=== PATIENT | male | born 1975 | race Caucasian/White ===

== ENCOUNTER 2022-08-24 21:38 | Emergency (ER) | payer OTHER, SELFPAY ==
[2022-08-24 21:43] VITALS: BP 103/77; PULSE 113; RESP 15; TEMP 37.2; O2SAT 99; BMI 28.7
[2022-08-24 21:44] VITALS: BP 103/77; PULSE 115; RESP 18; TEMP 37.2; O2SAT 98
[2022-08-24 22:03] LABS: Bacteria 0 SEEN /hpf (None Seen); Red Blood Cells-Urine 0 SEEN /hpf (0-5)
[2022-08-24 22:11] LABS: Color, Urine Yellow (Yellow); Glucose, Dipstick Normal (Normal); Ketone-Dipstick Negative (Negative); Leukocyte Esterase-Dipstick 25 /ul (Negative); Nitrite-Dipstick Negative (Negative); Occult Blood-Urine Negative /ul (Negative); Protein-Dipstick 15 mg/dl (Negative); Urine Clarity Clear (Clear); Urine Urobilinogen 1 mg/dl (Normal)
--- NOTE | 2022-08-24 22:11 | EDS_ITS ---
HPI HPI - GI History of Present Illness Chief Complaint: Nausea/Vomiting/Diarrhea Informant: patient Nausea/Vomiting/Emesis GI Symptom: Positive for Nausea and Vomiting Diarrhea/Melena/Hematochezia GI Symptom: Positive for Diarrhea; Negative for Melena or Hematochezia Onset: Today Stool Quality: Positive for Watery Severity: Mild Associated Symptoms Associated Symptoms: Negative for Dysuria, Frequency, Hematuria or Urgency Narrative Narrative: 47-year-old male past medical history of depression and restless leg syndrome. No significant prior abdominal surgeries. Said his daughter had it frozen today he developed nausea, vomiting and diarrhea. Body aches. Denies any dysuria. No localizing abdominal pain. He is thrown up 4-6 times and had multiple bouts of diarrhea. No melena or hematochezia. Prior similar symptoms: Yes Recent Illness/Hospitalization: No PFSH PFSH Home Medications citalopram 10 mg tablet (Celexa) 10 mg 1XD 08/24/22 [History Last Taken Unknown] gabapentin 300 mg tablet 300 mg PO TID 08/24/22 [History Last Taken Unknown] ondansetron 4 mg disintegrating tablet 4 mg PO Q6H PRN nausea and vomiting #7 tabs 08/24/22 [Rx Last Taken Unknown] Allergy/AdvReac Type Severity Reaction Status Date / Time No Known Allergies Allergy Verified 08/24/22 21:45 Social History Smoking Status: Never smoker ROS ROS ED ROS Narrative Nausea, vomiting and diarrhea. Body aches. Review of Systems ROS Unobtainable: Denies due to encephalopathy Constitutional Constitutional ED: Denies chills or fever(s) ENT ENT ED: Denies ear pain Cardiovascular Cardiovascular: Denies chest pain Respiratory/Chest Respiratory/Chest: Denies cough or dyspnea Gastrointestinal Gastrointestinal: Reports abdominal pain, diarrhea, nausea and vomiting; Denies constipation or melena Genitourinary Genitourinary ED: Denies dysuria or hematuria Musculoskeletal Musculoskeletal: Reports arthralgias and myalgias Integumentary Denies abscess Neurologic Neurologic: Denies headache(s) Psychiatric Psychiatric: Denies anxiety Endocrine Endocrinology: Denies polydipsia Hematologic/Lymphatic Hematologic/Lymphatic: Denies easy bleeding Allergic/Immunologic Allergic/Immunologic ED: Denies mouth swelling or tongue swelling EXAM Physical Exam Narrative Exam Narrative: 47-year-old male no acute distress. Vital signs are stable and afebrile. Does not look septic or toxic. Mildly dehydrated. H EENT exam mildly dry mucous membranes otherwise unremarkable. Neck nontender no lymphadenopathy. Lungs clear to auscultation bilaterally. Heart tachycardic rate about 115. No murmur. Abdomen soft, nontender, nondistended, normal bowel sounds. No right upper or right lower quadrant tenderness. No distention. No hernia. Positive bowel sounds. Moving all 4 extremities. Neurologically is awake and alert with no focal motor deficits. Const Vital Signs: 08/24/22 21:43 08/24/22 21:44 Temperature 98.9 F 98.9 F Temperature Source Temporal Temporal Pulse Rate 113 H 115 H Respiratory Rate 15 18 Blood Pressure 103/77 103/77 Blood Pressure Mean 85 85 Pulse Ox 99 98 Oxygen Delivery Method Room Air Room Air Positive well nourished and well developed; Negative for obese, cachectic, contractures or unkempt General Appearance ED: well developed and NAD; Negative for unkempt, cachectic, contractures or pallor Nutritional Appearance: Negative for cachectic or obese HEENT Reports dry mucous membranes; Denies moist mucous membranes normocephalic and atraumatic; Negative for trauma or tenderness Mouth ED: Yes dry mucous membranes Mouth: dry mucous membranes Eyes PERRL and EOMs intact bilaterally General Eye ED: Negative for pale conjunctiva, scleral icterus or other Neck no lymphadenopathy, supple and no JVD General: Negative for tenderness Carotids: Negative for other Resp normal respiratory effort and clear to auscultation bilaterally Effort and Inspection: Negative for respiratory distress Auscultation: Negative for rales, rhonchi or wheezes Cardio regular rhythm, S2 normal heart sound and no murmurs; Negative for regular rate Rate: Negative for bradycardia or tachycardic Rhythm: Negative for abnormal rhythm GI non-tender, non-distended and no masses Inspection: Negative for abdominal distention Auscultation: normoactive bowel sounds Palpation: soft; Negative for tender, guarding or rigid Back/Spine no CVA tenderness General Back: Negative for CVA tenderness Cervical Spine: Negative for cervical spine tenderness Thoracic Spine / Upper Back: Negative for thoracic spinal tenderness Lumbar Spine / Lower Back: Negative for lumbar spinal tenderness Coccyx: Negative for other Extremity full ROM General Extremety ED: Negative for edema or tenderness General Extremity: Negative for edema Neuro CN's II-XII intact bilaterally and moves all extremities Sensorium / Orientation: alert, oriented to person, oriented to place and oriented to time; Negative for orientation impaired, confused, lethargic or stuporous Motor Exam: strength 5/5 throughout; Negative for general weakness Psych mental status grossly normal and thought process normal Appearance: Negative for unkempt Attitude: No agitated Mood & Affect: Negative for depressed, anxious or tearful Skin no wounds General Skin Exam: Negative for jaundice or pallor Lesions: no lesions Rashes: no rashes Trauma: Negative for abrasion Nails: Negative for discolored MDM MDM MDM Narrative Medical decision making narrative: 47-year-old male clinically and by exam consistent with viral gastroenteritis. He will be treated with a liter normal saline and IV Zofran for his nausea. Screening labs been sent off by nursing. He has no signs of a surgical abdomen, acute appendicitis, bowel obstruction or cholecystitis. Patient be reassessed. Suspect discharged home after he is able to hold down p.o. fluids.. Exam and history I do not feel the patient needs any imaging of his abdomen. He will be reassessed. Repeat exam patient is doing well at 11 PM. Abdomen is benign. His nausea is resolved with the Zofran. He clinically feels and looks better. He has no abdominal pain on exam. We discussed viral gastroenteritis will be discharged home with a prescription for Zofran. And the work excuse. Lab Data Attestation: I reviewed the patient's lab results. Lab results narrative: CBC shows a white count 12.3. H&H of 15 and 43. Platelets 253. Electrolytes unremarkable gap of 9. Normal BUN of 18 creatinine 1.1. Glucose 157. Urine Alysis negative. No red cells. No white cells. No bacteria nor nitrates. Labs: Laboratory Results - last 24 hr 08/24/22 08/24/22 08/24/22 21:55 22:13 22:13 WBC 12.3 H RBC 5.11 Hgb 15.3 Hct 43.9 MCV 85.9 MCH 29.9 MCHC 34.9 RDW Std Deviation 39.3 RDW Coeff of Richy 12.5 Plt Count 253 MPV 9.7 Immature Gran % (Auto) 0.400 Neut % (Auto) 90.5 H Lymph % (Auto) 4.1 L Evangeline % (Auto) 4.6 Eos % (Auto) 0.1 Baso % (Auto) 0.3 Absolute Neuts (auto) 11.1 H Absolute Lymphs (auto) 0.51 L Nucleated RBC % 0 Differential Comment SCANNED Sodium 141 Potassium 3.9 Chloride 110 H Carbon Dioxide 22.0 Anion Gap 9 BUN 18 Creatinine 1.13 Estim Creat Clear Calc 82.55 Est GFR (MDRD) Af Amer 89 Est GFR (MDRD) Non-Af 74 BUN/Creatinine Ratio 15.9 Glucose 157 H Calcium 8.8 Urine Color Yellow Urine Clarity Clear Urine pH 6.0 Ur Specific [place] 1.020 Urine Protein 15 H Urine Glucose (UA) Normal Urine Ketones Negative Urine Occult Blood Negative Urine Nitrite Negative Urine Bilirubin 1 H Urine Urobilinogen 1 H Ur Leukocyte Esterase 25 H Urine RBC 0 SEEN Urine WBC 0-5 SEEN Ur Squamous Epith Cells 0-5 SEEN Urine Bacteria 0 SEEN Urine Mucus 4+ Discharge Plan Triage Chief Complaint: Nausea/Vomiting/Diarrhea ED Provider: Guilherme Gardiner Dx/Rx/DC Orders Clinical Impression: Viral gastroenteritis, Nausea vomiting and diarrhea Instructions: ED Gastroenteritis, Viral (Adult) Prescriptions: New ondansetron 4 mg tablet,disintegrating 4 mg PO Q6H PRN (Reason: nausea and vomiting) Qty: 7 0RF No Action citalopram [Celexa] 10 mg Tablet 10 mg 1XD gabapentin 300 mg Tablet 300 mg PO TID Rx Instructions: unsure of dose/regimen [facility] [facility] [Primary Care Provider] - Activity Restrictions/Additional Instructions: Plenty of fluids and rest. Slowly increase your diet as tolerated. Zofran as needed for nausea. Follow-up with your doctor if not improving return if worse. Disposition Disposition: Home, Self Care
[2022-08-24 22:21] LABS: Absolute Lymphocyte Count 0.51 X10^3/uL (0.83-4.51); Absolute Neutrophil Count 11.1 X10^3/uL (2.0-7.7); Basophil# 0.04 X10^3/uL; Basophil% 0.3 % (0-1); Eosinophil# 0.01 X10^3/uL; Eosinophils% 0.1 % (0-5); Hematocrit 43.9 % (40-54); Hemoglobin 15.3 g/dL (13.0-16.5); Lymphocyte # 0.51 X10^3/ul (0.83-4.51); Lymphocyte % 4.1 % (19-41); Mean Corp Hgb Conc 34.9 g/dL (32-36); Mean Corpuscular Hgb 29.9 pg (27.0-32.0); Mean Corpuscular Volume 85.9 fL (80-94); Mean Platelet Vol. 9.7 fl (6.2-12.0); Monocyte# 0.56 X10^3/uL; Monocyte% 4.6 % (0-10); NRBC Flagged by Analyzer 0 % (0-5); Neutrophil # 11.13 X10^3/uL (2.7-7.7); Neutrophil % 90.5 % (47-70); POSITIVE DIFFERENTIAL YES; Platelet Count 253 K/mm3 (150-450); RBC Distribution Width CV 12.5 % (11.6-14.6); RBC Distribution Width SD 39.3 fl (35.1-43.9); Red Blood Count 5.11 M/mm3 (4.6-6.2); White Blood Count 12.3 K/mm3 (4.4-11.0)
[2022-08-24] MEDS: Ondansetron 4 MG/2 ML Vial IV (22:21)
[2022-08-24] MEDS: 0.9% Normal Saline 1,000 ML 999 ML IV (22:21)
[2022-08-24 22:22] LABS: Differential Indicated SCAN CRITERIA MET
[2022-08-24 22:25] LABS: Urine Bilirubin Dipstick 1 mg/dL (Negative)
[2022-08-24 22:27] LABS: Mucous, Urine 4+ /hpf (<or=2+)
[2022-08-24 22:28] LABS: Squamous Epithelial Cells - UA 0-5 SEEN /hpf (0-5); White Blood Cells 0-5 SEEN /hpf (0-5)
[2022-08-24 22:35] LABS: Anion Gap 9 (5-15); BUN 18 mg/dL (7-18); BUN/Creat Ratio 15.9 RATIO (10-20); Calcium,Total 8.8 mg/dL (8.5-10.1); Chloride 110 mmol/L (98-107); Creatinine, Serum 1.13 mg/dL (0.70-1.30); EST Glomerular Filtration Rate 74 mL/min (>60); Est Glom Filt Rate - Afr Amer 89 mL/min (>60); Estimated Creatinine Clearance 82.55 ml/min; Glucose 157 mg/dL (74-106); Potassium 3.9 mmol/L (3.5-5.1); Sodium Level 141 mmol/L (136-145)
[2022-08-24 22:48] LABS: Differential Comment SCANNED
== END 2022-08-24 23:15 | disposition home or self-care (01) ==
PROVIDERS: Emergency Provider Emergency Medicine; Visit Provider Emergency Medicine
DX: A08.4 Viral intestinal infection, unspecified (principal); Z79.899 Other long term (current) drug therapy
CPT/HCPCS: 80048; 81001; 85025; 96374; 99282; J7030; A4216; J2405

== ENCOUNTER 2023-02-14 11:44 | Emergency (ER) | payer OTHER, SELFPAY ==
[2023-02-14 11:46] VITALS: BP 127/85; PULSE 76; RESP 14; TEMP 36.6; O2SAT 98; BMI 28.8
[2023-02-14 11:51] VITALS: BP 121/74; PULSE 90; RESP 29; TEMP 35.2; O2SAT 97; BMI 30.7
--- NOTE | 2023-02-14 12:00 | EKG12_ITS ---
Test Reason : DIZZY Blood Pressure : / mmHG Vent. Rate : 088 BPM Atrial Rate : 088 BPM P-R Int : 146 ms QRS Dur : 108 ms QT Int : 374 ms P-R-T Axes : 012 017 040 degrees QTc Int : 452 ms Normal sinus rhythm Normal ECG Confirmed by GUANACO VICK ([id number]), manuscript editor AVIS SUTTON ([id number]) on 02/19/2023 8:33:39 AM Referred By: Confirmed By:GUANACO VICK
--- NOTE | 2023-02-14 12:00 | CT_ITS ---
STUDY: CT BRAIN WITHOUT CONTRAST REASON FOR EXAM: Male, 47 years old. Cast iron sink fell on the patient''s head. Laceration of the forehead. RADIATION DOSAGE (If Supplied By Facility): CTDIvol = ( 44.99 ) mGy, DLP = ( 796.11 ) mGycm TECHNIQUE: Transaxial CT imaging of the brain was performed without administration of intravenous contrast material. Individualized dose optimization techniques were used for this CT. COMPARISON: No relevant priors. FINDINGS: Normal soft tissue structures. Normal calvarium. Normal size ventricles and extra-axial spaces for the patient''s age. Normal white matter tracts of the cerebral hemispheres. Normal basal ganglia and thalami. Normal brainstem. Normal cerebellum. There is no intracranial hemorrhage. There are no findings of an acute ischemic infarction. Normal visualized paranasal sinuses. CT/Brain/Head without Contrast IMPRESSION: Normal unenhanced CT scan of the brain. Electronically Signed: German Patino MD at 12:28 EDT ,
--- NOTE | 2023-02-14 12:07 | NURSING ---
NO OLD EKGS
--- NOTE | 2023-02-14 12:25 | EDS_ITS ---
HPI History of Present Illness Chief Complaint: Laceration Informant: patient Onset/Context/Timing Onset: Today Narrative Narrative: 47-year-old male states he was hit in the head with a dual cast iron sink. Patient was in the kitchen remodeling with the sink broke through the supports and struck him in the head. He denies loss of consciousness. Unknown last tetanus. No vomiting. He states that when he got to the emergency room he started to feel very lightheaded diaphoretic and his arms became heavy and tingling. Triage nurse notes that he had a syncopal episode however brief. He states he is feeling back to his normal self. He denies any current arm or leg symptoms. No neck pain. No chest pain or palpitations. Tetanus Immunization: Unknown [facility] Medical History (Updated 02/14/23 @ 13:[address] Prabhu White DO) Depression Home Medications citalopram 10 mg tablet (Celexa) 10 mg 1XD 08/24/22 [History Last Taken Unknown] gabapentin 300 mg tablet 300 mg PO TID 08/24/22 [History Last Taken Unknown] ondansetron 4 mg disintegrating tablet 4 mg PO Q6H PRN nausea and vomiting #7 tabs 08/24/22 [Rx Last Taken Unknown] Allergy/AdvReac Type Severity Reaction Status Date / Time No Known Allergies Allergy Verified 02/14/23 11:45 Social History Smoking Status: Never smoker ROS ROS ED Constitutional Constitutional ED: Denies chills, fever(s) or weight loss Eyes Eyes: Denies change in vision or diplopia ENT ENT ED: Denies ear pain, rhinorrhea or sore throat Cardiovascular Cardiovascular: Reports other Details: syncope ; Denies chest pain, orthopnea, palpitations or racing heartbeat Respiratory/Chest Respiratory/Chest: Denies cough, dyspnea or orthopnea Gastrointestinal Gastrointestinal: Denies abdominal pain, diarrhea, nausea or vomiting Genitourinary Genitourinary ED: Denies dysuria, hematuria or urinary frequency Musculoskeletal Musculoskeletal: Denies arthralgias or myalgias Integumentary Reports other Details: laceration ; Denies abscess or rash Neurologic Neurologic: Denies headache(s) or weakness Psychiatric Psychiatric: Denies anxiety, depression, suicidal ideation or suicidal thoughts Endocrine Endocrinology: Denies polydipsia, polyphagia or polyuria Allergic/Immunologic Allergic/Immunologic ED: Denies mouth swelling, tongue swelling or urticaria EXAM Physical Exam Const Vital Signs: 02/14/23 11:46 02/14/23 11:51 Temperature 98 F 95.4 F L Temperature Source Temporal Temporal Pulse Rate 76 90 Respiratory Rate 14 29 H Blood Pressure 127/85 H 121/74 H Blood Pressure Mean 99 89 Pulse Ox 98 97 Oxygen Delivery Method Room Air Room Air Positive well nourished and well developed General Appearance ED: well developed HEENT Reports normocephalic and moist mucous membranes HEENT Narrative: There is a 4 cm vertical macerated laceration in the mid forehead. Bleeding controlled. No palpable bony depressions. Eyes PERRL and EOMs intact bilaterally Neck full ROM, no lymphadenopathy, supple and no JVD Resp normal respiratory effort and clear to auscultation bilaterally Cardio regular rate, regular rhythm and no murmurs GI normal to inspection, nondistended, normoactive bowel sounds and non-tender Palpation: soft Back/Spine no CVA tenderness and normal ROM Extremity normal to inspection General Extremety ED: Negative for edema General Extremity: Negative for edema Neuro oriented x3 and CN's II-XII intact bilaterally Sensorium / Orientation: alert Motor Exam: strength 5/5 throughout Psych mental status grossly normal Mood & Affect: Negative for depressed or tearful Skin no rashes or lesions noted Skin Narrative: Patient has resolving diaphoresis. [facility] MDM MDM MDM Narrative Medical decision making narrative: CT of the brain was obtained to rule out intracranial hemorrhage and skull fracture. This was negative for acute. This was reviewed by myself and read by radiology. The wound was locally anesthetized using 1% lidocaine. He was washed with Shur- Clens and explored. A total of 3 simple interrupted Ethilon sutures were placed. This allowed for good wound edge closure. The cephalad most aspect of the wound however showed macerated tissue that could not be easily sutured. A small amount of skin glue was placed in this area for adherence. Bleeding was controlled. Tetanus was updated. Wound care discussed with patient and his . notes that he had a syncopal episode last week during a coughing fit while laughing. This sounds like a benign cause of syncope as does today. Patient was advised to follow-up with his primary care physician in 5 days for suture removal and to talk about these 2 prior syncopal episodes. Radiography Diagnostic Testing: Clinical Impression(s) from Imaging Studies Brain CT 02/14/23 12:00 IMPRESSION: Normal unenhanced CT scan of the brain. Electronically Signed: German Patino MD at 12:28 EDT , EKG Initial EKG: Attestation: I personally reviewed and interpreted this EKG as follows: Interpretation: Sinus Rhythm Comments: Normal sinus rhythm with a ventricular rate of 88 bpm. No concerning features of ACS noted. Prior EKG tracings: not available for review Prior: No Prior Discharge Plan Triage Chief Complaint: Laceration ED Provider: Prabhu White Dx/Rx/DC Orders Clinical Impression: Syncope, Facial laceration, Head injury Instructions: ED Head Injury (Adult), ED Laceration: All Closures Prescriptions: No Action citalopram [Celexa] 10 mg Tablet 10 mg 1XD gabapentin 300 mg Tablet 300 mg PO TID Rx Instructions: unsure of dose/regimen ondansetron 4 mg tablet,disintegrating 4 mg PO Q6H PRN (Reason: nausea and vomiting) Qty: 7 0RF [facility] Provider] - 5 Days for suture removal Disposition Disposition: Home, Self Care
[2023-02-14 12:52] VITALS: RESP 18
[2023-02-14] MEDS: Diphth,Pertuss(Acell),Tet Vac 0.5 ML Vial IM (13:13)
[2023-02-14] MEDS: Lidocaine 1% (20 ml mdv) 20 ML Vial INFILT (13:14)
== END 2023-02-14 13:25 | disposition home or self-care (01) ==
PROVIDERS: Emergency Provider Emergency Medicine; Visit Provider Emergency Medicine
DX: R55 Syncope and collapse (principal); S01.81XA Laceration without foreign body of other part of head, initial encounter; Z23 Encounter for immunization; X58.XXXA Exposure to other specified factors, initial encounter
CPT/HCPCS: 12013; 70450; 90471; 90715; 93005; 99283